=== PATIENT | male | born 1995 | race Asian ===

== ENCOUNTER 2019-06-08 10:46 | Inpatient (IN) ==
[2019-06-08 11:36] LABS: Appearance Urine Cloudy (Clear); Bacteria Urine Automated Negative (Negative); Bilirubin Urine Negative (Negative); Blood Urine Negative (Negative); Color Urine Yellow; Glucose Urine UA Negative (Negative); Ketones Urine Trace (Negative); Leukocyte Esterase Urine Negative (Negative); Nitrite Urine Negative (Negative); Protein Urine Negative (Negative); RBC Urine Automated 0-4 /hpf (0-4); Specific Gravity Urine 1.024 (1.000-1.030); Urobilinogen Urine Negative (Negative); pH Urine 5.5 (4.5-7.5)
[2019-06-08 11:51] LABS: Amphetamines+Metham, Urine Neg (Neg); Barbiturates, Urine Neg (Neg); Benzodiazepine, Urine Neg (Neg); Cocaine, Urine Neg (Neg); MDMA (Ecstacy), Urine Neg (Neg); Methadone, Urine Neg (Neg); Opiate, Urine Neg (Neg); Phencyclidine, Urine Neg (Neg)
[2019-06-08 11:53] LABS: Basophils # (auto) 0.06 K/uL (0-0.2); Basophils % (auto) 1.2 %; Eosinophils # (auto) 0.41 K/uL (0-0.5); Hematocrit (blood only) 41.2 % (42-52); Hemoglobin 14.3 g/dL (14.0-18.0); Immature Granulocytes # (auto) 0.01 K/uL (0.00-0.02); Immature Granulocytes % (auto) 0.2 %; Lymphocytes # (auto) 1.42 K/uL (1.2-3.4); Lymphocytes % (auto) 27.7 %; Mean Corpuscular Hgb Conc 34.7 g/dL (32-36); Mean Platelet Volume 9.8 fL (7.4-10.4); Monocytes % (auto) 5.8 %; Neutrophils # (auto) 2.93 K/uL (1.4-6.5); Neutrophils % (auto) 57.1 %; Platelet Count 221 K/uL (130-400); RDW Coefficient of Variation 13.1 % (11.5-14.5); RDW Standard Deviation 37.6 fL (36.4-46.3); Red Blood Count 5.15 M/uL (4.7-6.1); White Blood Count 5.13 K/uL (4.8-10.8)
[2019-06-08 12:12] LABS: Alanine Aminotransferase 25 U/L (12-78); Albumin Level 3.9 gm/dl (3.4-5.0); Aspartate Aminotransferase 14 U/L (15-37); Blood Urea Nitrogen 9 mg/dl (7-18); Calcium 8.7 mg/dl (8.5-10.1); Carbon Dioxide 28 mmol/L (21-32); Chloride 108 mmol/L (98-107); Est GFR (African American) 133.5; Est GFR (Non-African American) 115.2; Glucose 93 mg/dl (70-99); Potassium 3.7 mmol/L (3.5-5.1); Sodium 140 mmol/L (136-145)
[2019-06-08 12:20] LABS: Acetaminophen < 2 ug/ml (10-30); Salicylate < 1.7 mg/dl (2.8-20)
[2019-06-08 12:22] LABS: Albumin Globulin Ratio 1.1 (0.9-2); Alkaline Phosphatase 80 U/L (45-117); Bilirubin,Total 0.5 mg/dl (0.2-1); Globulin 3.6 gm/dl (2.5-4.0); Total Protein 7.5 gm/dl (6.4-8.2)
--- NOTE | 2019-06-08 15:25 | Emergency Department Note ---
Entered by Faby Preciado acting as a scribe for ED Provider Note CHIEF COMPLAINT: Mental Health Evaluation HISTORY OF PRESENT ILLNESS: The patient is a 24 year old male who presents to the Emergency Room for an episode of mental health evaluation prior to arrival. The police sergeant that transported the patient here states that the patient sent a text message to his brother last night with a picture of a rope and a message that he was going to commit suicide. The officer states that the patient was located driving his car where they found a rope that the patient claimed he was going to use to kill himself. The patient states that he bought the rope with intention to kill himself. He reports that he has been upset with his life for the past 2 months since he lost his job as an [employer] due to slow business. The patient also reports that he is currently stressed about a lack of money to pay his bills. The patient claims that he moved to [place] from [place], [place] to be closer to his brother. The patient denies any previous psychiatric history or suicidal thoughts. Pt denies LOC, headache, fevers, chills, diaphoresis, visual changes, neck pain, chest pain, breathing difficulties, nausea, vomiting, abdominal pain, back pain, melena, hematochezia, urinary symptoms, numbness, weakness, lymphadenopathy, rash, or other complaints. REVIEW OF SYSTEMS: See HPI for pertinent positives and negatives. A total of ten systems were reviewed and were otherwise negative. PMHx/PSHx: No past medical history. No past surgical history. SOCIAL HISTORY: Patient lives at home. Patient is not a smoker or drinker. PHYSICAL EXAM: GENERAL: Awake, alert, well-appearing, in no distress HENT: Normocephalic, atraumatic. Oropharynx unremarkable. EYES: PERRL. Normal conjunctiva. Sclera non-icteric. NECK: Inspection normal. Non-tender. Supple. No nuchal rigidity. FROM. No masses. RESPIRATORY: Clear to auscultation. No wheezes. No rales. Normal respiratory e ffort. CARDIAC: Normal rate. Normal rhythm. No murmurs. No rubs. Extremities warm and well perfused. Pulses equal. No JVD. GI: Soft, non-distended. No tenderness to palpation. No rebound or guarding. No masses. RECTAL: Deferred. MUSCULOSKELETAL: Atraumatic. Chest examination reveals no tenderness. The back is symmetrical on inspection without obvious abnormality. There is no CVA tenderness to palpation. No joint edema. LOWER EXTREMITIES: Calves are equal size bilaterally and non-tender. No edema. No discoloration. NEURO: Normal sensorium. No sensory or motor deficits noted. PSYCH: Depressed Mood. Flat Affect. Suicidal ideation. No delusions or hallucinations. Poor insight. SKIN: No rash or jaundice noted. EMERGENCY DEPARTMENT COURSE: 1100: Past medical records reviewed. The patient was evaluated in room A7, and a complete history and physical examination were performed. 1350: I reevaluated the patient at this time and he is resting comfortably. 1450: I discussed the patients case with the case manager specialist and we decided that the patient will be admitted for further management. 1540: I evaluated the patient at this time. The patient was received by [facility] and admitted. MEDICAL DECISION MAKING: Prior records/ancillary studies reviewed. Triage Nursing notes reviewed and agree them. Additional history obtained from the family. The patient's history was concerning for possible psychiatric disturbance. Differential diagnosis: Etiologies such as mood disorder, infection, hypoglycemia, electrolyte abnormalities, cardiac sources, intracerebral event, toxicologic, neurologic, as well as others were entertained. Physical examination: The physical examination was performed as above and was completely benign. No emergent medical pathologies were noted. ER treatment provided: Monitoring. No education was given. On reassessment the patient felt better. Diagnostic interpretation by me: The labs revealed an unremarkable CBC and chemistry panel. Toxicology screen negative. Imaging studies: Deferred Patient was evaluated by the ER psychiatric case manager specialist. There were concerns about the patient's insight in his ability to understand the significant impact of his suicidal issues. He initially was cooperative but then was resistant to the idea of treatment in the hospital. A 302 was pursued. The patient was evaluated by the [facility] delegate. Patient was evaluated by [facility]. Admission to the hospital was felt to be appropriate due to the patient's high risk. I gave my usual and customary discussion regarding this issue. IMPRESSION: Mood disorder Suicidal ideation PLAN: The patient will be admitted for further management. The scribe's documentation has been prepared under my direction and personally reviewed by me in its entirety. I confirm that the note above accurately reflects all work, treatment, procedures, and medical decision making performed by me. Impression & Plan Mood disorder, Suicidal ideation Past Med/Surg History Medical History No known health problems Family History Other Diabetes Social History Preferred Language: Sinhala Communication Ability: Effective Structurer Required: No Beliefs That Will Affect Care: Zoroastrian current occupational status: unemployed Feels Safe at Home: Yes Smoking Status: Never smoker Results & Data Vital Signs Vital Signs - 24 hr 06/08/19 10:45 06/08/19 12:48 Temperature 36.8 C Temperature Source Oral Sepsis Recent Fever Within 48 Hours No Sepsis New/Unexplained Change in Mental Status No Sepsis Action Taken by Nursing No Action Required Pulse Rate 93 H Pulse Rate [Left Finger] 65 Pulse Rhythm [Left Finger] Regular Respiratory Rate 20 20 Respiratory Effort / Characteristics Non-Labored Non-Labored Respiratory Depth Normal Normal Respiratory Pattern Regular Regular Blood Pressure 131/83 Blood Pressure [Left Arm] 130/72 Blood Pressure Mean 99 Blood Pressure Mean [Left Arm] 91 Pulse Oximetry 98 97 Oxygen Delivery Method Room Air Room Air Laboratory Data Result diagrams: 06/08/19 11:38 06/08/19 11:38 Lab Results 06/08/19 06/08/19 06/08/19 Range/Units 11:20 11:20 11:38 WBC 5.13 (4.8-10.8) K/uL RBC 5.15 (4.7-6.1) M/uL Hgb 14.3 (14.0-18.0) g/dL Hct 41.2 L (42-52) % MCV 80.0 (80-100) fL MCH 27.8 (25-34) pg MCHC 34.7 (32-36) g/dL RDW Std Deviation 37.6 (36.4-46.3) fL RDW Coeff of Mike 13.1 (11.5-14.5) % Plt Count 221 (130-400) K/uL MPV 9.8 (7.4-10.4) fL Immature Gran % (Auto) 0.2 % Neut % (Auto) 57.1 % Lymph % (Auto) 27.7 % Crosby % (Auto) 5.8 % Eos % (Auto) 8.0 % Baso % (Auto) 1.2 % Immature Gran # (Auto) 0.01 (0.00-0.02) K/uL Neut # (Auto) 2.93 (1.4-6.5) K/uL Lymph # (Auto) 1.42 (1.2-3.4) K/uL Crosby # (Auto) 0.30 (0.11-0.59) K/uL Eos # (Auto) 0.41 (0-0.5) K/uL Baso # (Auto) 0.06 (0-0.2) K/uL Sodium (136-145) mmol/L Potassium (3.5-5.1) mmol/L Chloride (98-107) mmol/L Carbon Dioxide (21-32) mmol/L Anion Gap (3-11) BUN (7-18) mg/dl Creatinine (0.6-1.4) mg/dl Est Cr Clr Drug Dosing Est GFR ( Amer) Est GFR (Non-Af Amer) BUN/Creatinine Ratio (10-20) Glucose (70-99) mg/dl Calcium (8.5-10.1) mg/dl Total Bilirubin (0.2-1) mg/dl AST (15-37) U/L ALT (12-78) U/L Alkaline Phosphatase (45-117) U/L Total Protein (6.4-8.2) gm/dl Albumin (3.4-5.0) gm/dl Globulin (2.5-4.0) gm/dl Albumin/Globulin Ratio (0.9-2) TSH (0.300-4.500) uIu/ml Urine Color Yellow Urine Appearance Cloudy A (Clear) Urine pH 5.5 (4.5-7.5) Ur Specific [place] 1.024 (1.000-1.030) Urine Protein Negative (Negative) Urine Glucose (UA) Negative (Negative) Urine Ketones Trace H (Negative) Urine Blood Negative (Negative) Urine Nitrite Negative (Negative) Urine Bilirubin Negative (Negative) Urine Urobilinogen Negative (Negative) Ur Leukocyte Esterase Negative (Negative) Urine WBC (Auto) 1-5 (0-5) /hpf Urine RBC (Auto) 0-4 (0-4) /hpf U Hyaline Cast (Auto) 1-5 (0-5) /lpf U Epithel Cells (Auto) 10-20 H (0-5) /lpf Urine Bacteria (Auto) Negative (Negative) Salicylates (2.8-20) mg/dl Urine Opiates Screen Neg (Neg) Ur Methadone, Qual Neg (Neg) Acetaminophen (10-30) ug/ml Urine Barbiturates Neg (Neg) Ur Phencyclidine (PCP) Neg (Neg) U Amphetamin/Meth Scrn Neg (Neg) MDMA (Ecstasy) Screen Neg (Neg) U Benzodiazepines Scrn Neg (Neg) Ur Cocaine Metabolite Neg (Neg) U Marijuana (THC) Screen Neg (Neg) Ethyl Alcohol mg/dL (0-3) mg/dl 06/08/19 06/08/19 06/08/19 Range/Units 11:38 11:38 11:38 WBC (4.8-10.8) K/uL RBC (4.7-6.1) M/uL Hgb (14.0-18.0) g/dL Hct (42-52) % MCV (80-100) fL MCH (25-34) pg MCHC (32-36) g/dL RDW Std Deviation (36.4-46.3) fL RDW Coeff of Mike (11.5-14.5) % Plt Count (130-400) K/uL MPV (7.4-10.4) fL Immature Gran % (Auto) % Neut % (Auto) % Lymph % (Auto) % Crosby % (Auto) % Eos % (Auto) % Baso % (Auto) % Immature Gran # (Auto) (0.00-0.02) K/uL Neut # (Auto) (1.4-6.5) K/uL Lymph # (Auto) (1.2-3.4) K/uL Crosby # (Auto) (0.11-0.59) K/uL Eos # (Auto) (0-0.5) K/uL Baso # (Auto) (0-0.2) K/uL Sodium 140 (136-145) mmol/L Potassium 3.7 (3.5-5.1) mmol/L Chloride 108 H (98-107) mmol/L Carbon Dioxide 28 (21-32) mmol/L Anion Gap 4.0 (3-11) BUN 9 (7-18) mg/dl Creatinine 0.92 (0.6-1.4) mg/dl Est Cr Clr Drug Dosing Not Reportable Est GFR ( Amer) 133.5 Est GFR (Non-Af Amer) 115.2 BUN/Creatinine Ratio 10.0 (10-20) Glucose 93 (70-99) mg/dl Calcium 8.7 (8.5-10.1) mg/dl Total Bilirubin 0.5 (0.2-1) mg/dl AST 14 L (15-37) U/L ALT 25 (12-78) U/L Alkaline Phosphatase 80 (45-117) U/L Total Protein 7.5 (6.4-8.2) gm/dl Albumin 3.9 (3.4-5.0) gm/dl Globulin 3.6 (2.5-4.0) gm/dl Albumin/Globulin Ratio 1.1 (0.9-2) TSH 0.592 (0.300-4.500) uIu/ml Urine Color Urine Appearance (Clear) Urine pH (4.5-7.5) Ur Specific [place] (1.000-1.030) Urine Protein (Negative) Urine Glucose (UA) (Negative) Urine Ketones (Negative) Urine Blood (Negative) Urine Nitrite (Negative) Urine Bilirubin (Negative) Urine Urobilinogen (Negative) Ur Leukocyte Esterase (Negative) Urine WBC (Auto) (0-5) /hpf Urine RBC (Auto) (0-4) /hpf U Hyaline Cast (Auto) (0-5) /lpf U Epithel Cells (Auto) (0-5) /lpf Urine Bacteria (Auto) (Negative) Salicylates < 1.7 L (2.8-20) mg/dl Urine Opiates Screen (Neg) Ur Methadone, Qual (Neg) Acetaminophen < 2 L (10-30) ug/ml Urine Barbiturates (Neg) Ur Phencyclidine (PCP) (Neg) U Amphetamin/Meth Scrn (Neg) MDMA (Ecstasy) Screen (Neg) U Benzodiazepines Scrn (Neg) Ur Cocaine Metabolite (Neg) U Marijuana (THC) Screen (Neg) Ethyl Alcohol mg/dL < 3.0 (0-3) mg/dl Discharge Plan Visit Data *Final* Discharge Date/Time: 06/08/19 16:32 Chief Complaint: Mental Health Evaluation ED Provider: Uriel Wilson Discharge Problem: Mood disorder, Suicidal ideation Patient Disposition: Admitted As Inpatient Discharge Instructions Interventions: ED Discharge Assessment Last Done: 06/08/19 16:32 The scribe's documentation has been prepared under my direction and personally r eviewed by me in its entirety. I confirm that the note above accurately reflects all work, treatment, procedures, and medical decision making performed by me.
[2019-06-08] MEDS ORDERED: MAGNESIUM HYDROXIDE SUSP 30 ML UDC PO PRN (17:41)
[2019-06-08] MEDS ORDERED: ACETAMINOPHEN 325 MG TAB PO PRN (17:41)
[2019-06-08] MEDS ORDERED: SODIUM CHLORIDE 0.65% NA SOLN 45 ML (OCEAN) PRN (17:41)
[2019-06-08] MEDS ORDERED: BISMUTH SUBSALICYLATE PER ML OMNICELL CHARGE PO PRN (17:41)
[2019-06-08] MEDS ORDERED: ALUMINUM/MAGNESIUM SUSP 30 ML UDC PO PRN (17:41)
--- NOTE | 2019-06-08 18:15 | History & Physical ---
Date of Service June 08, 2019 Impression / Recommendations Impression This 24-year-old man acknowledges that he has been feeling depressed since he lost his job in February of this year, a circumstance that has led to significant financial stressors as well as conflict with members of his family. However, while he reports that his mood has been "down", he denies that he is experiencing anything other than distress about his current circumstances. He also reports that although he can certainly understand why people are concerned about the fact that he sent a picture of himself with a noose around his neck, he insists that he was never genuinely suicidal and was "just trying to get even" with his brother who had fairly recently refused to allow him to continue to stay in his apartment locally, and who he also asserts had, during an angry exchange, called the patient a "piece of shit." The patient tells me that he is feeling betrayed by his local brother, as well as by other specific members of his family because he feels they are not being sufficiently supportive given his difficulty finding and maintaining a job that is sufficient to allow him to earn a living wage. He tells us that his current income is barely sufficient to allow him to make his car payments and auto mode of operating expenses. He also notes that he has been actively applying for other jobs, but has not been successful, primarily because he lacks experience. He has no reported history of intentional self injury and no past history of psychiatric symptomatology, including depression. He describes his mood as "pretty good" today and his affect is bright and fairly animated. My impression is that the patient's assessment of his current circumstances is correct; i.e., he is distressed about his current life circumstances, but, at the same time, he is future oriented and reports that he was only trying to express his hurt and disappointment in his brother by sending him the picture that implied that the brother had brought him to the point of suicide, even though that was not actually the case. We discussed the possible use of antidepressant medications, but the patient says that he would prefer not to take medications because he feels certain that once he succeeds in finding a job his mood will rapidly return to normal. On the patient's goals is to temporarily return to [place] [facility] [place], the country where he was born and lived until he was approximately 11 years old. 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. Our plan will be to observe the patient for the next 2 or 3 days in order to assure that he is not simply taken a "flight into health," and arrange for outpatient aftercare services. (1) Suicidal ideation: 06/08 -The patient's assertion is that he never had any intent to harm himself by placing a noose around his neck. Instead, he tells us that his goal was to communicate to his brother's feelings of hurt and betrayal in the face of the brother's decision to eject the patient from the apartment that they had been sharing (at the brother's girlfriend's request), the brother's unwillingness to be supportive under the patient's current circumstances, and the fact that the brother had called him "a piece of shit". He tells me that he has never actually had any suicidal thoughts and has no past history of intentional self injury. -We will observe the patient at the inpatient level care in order to assure that he is genuinely not suicidal. -During stay, the patient has been referred for activity and group therapies. The goal will be for the patient to learn improved individual coping strategies in anticipation of discharge. Present on Admission?: Yes (2) Adjustment disorder: 06/08 -The patient reports that he has no past history of depression or any other psychiatric symptoms. However, he does note that he is having difficulty adjusting to his current financial difficulties and living situation. -I do not believe the patient meets criteria for major depression. 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 Present on Admission?: Yes Inventory Assets Strengths: Intelligent. Goal oriented. Industrious. Needs: Poor individual coping strategies. Relief from serious financial difficulties. Greater support from family and friends. Risk Factors Assessment Male: Yes : Yes Do You Have Access To A Gun?: No Health Problems: No Mental Health Diagnoses: Yes Substance Use Disorders: No Previous Attempt: No Previous Attempt; Didn't Tell Anyone: No Family History of Suicide: No Previous Psychiatric Hospitalization: No Hopelessness: No Smoker: No Protective Factors Assessment Yazidism Beliefs: Yes : No Responsible for Young Children: No Employed: Yes ([employer]) Stable Relationships: Yes Supportive Family: Yes (Patient reports that several family members are very supportive, including a cousin) Good Rapport with Provider: Yes Absence of Any Risk Factors Above: No Psychiatric History Identifying Data DAKOTA MERIDA is a 24-year-old M who currently lives alone in [place], [place]. He has no known history of any previous contact with the mental health community, although he reports that he has been feeling depressed for approximately 3 months. The patient was admitted on 06/08/19 16:12 on a 302 involuntary commitment after he threatened suicide. Chief Complaint "I was upset because my brother called me a piece of shit." History of Present Illness The patient is a 24-year-old man who was admitted a 302 commitment after he indirectly threatened suicide by purchasing a rope, tying a rope into a noose, placing the noose around his neck, and then taking a picture of himself with a noose loosely around his neck. The patient then proceeded to send the picture of himself "wearing" the noose to his brother with an implication that he was planning to commit suicide by hanging. The patient acknowledges that he included a message that said something such as "is this what you want?" The patient tells me that he did not intend suicide and, instead, was simply trying to express his displeasure with his brother for not being sufficiently supportive. 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 He tells us that he was terminated from his position in the warehouse because he had made a series of mistakes and filling orders. For example, he notes that if a customer had ordered, say, 10 items he occasionally only fill the order with 9 items. This circumstance led to financial difficulties, and the patient noted that he did not have sufficient funds to make his car payments and contribute to household expenses. 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 In [place], he was living with an older brother, but the brother's girlfriend moved into the apartment and insisted that the patient's brother eject the patient from the apartment after he brought a female friend to the apartment. The patient explained that he believes that his brother's girlfriend simply wanted him out of the apartment because it was too crowded and, also, because he was not financially able to the household expenses. He reports that he only makes approximately enough money with the cleaning service to make his car payments. 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 After his brother ejected the patient from the apartment that the patient had shared with the brother the patient went to live in a somewhat derelict apartment that was being used by the cleaning company to store cleaning equipment. The patient notes that the apartment was barely habitable and, for example, did not have a working shower or bath tub, and was really not intended for habitation. He again sought help from his local brother here in [place], as well as from another sibling who is located in [place], [place]. Evidently, both brothers rejected his request for assistance, and the local brother reportedly ended up calling him "a piece of shit." Subsequent to that, the patient engaged in the behaviors that led to the admission; specifically, he purchased a rope, fashioned a noose, and sent a picture to his brother of himself with the noose hanging slack around his neck. The other hand of the noose was not attached to anything, according the patient. Upon receiving the photograph, the patient brother contacted the police. The police. The patient is he was in the process of driving a female friend back to her apartment. They advised him that they had received a report that he was threatening by hanging and brought him to the emergency room. The patient notes that he has been feeling depressed since losing his job in February, and is feeling very frustrated by the fact that he is working hard, but is not able to afford a decent place to live. He also says that the value of his car is less than what he owes on it and while he would have the option of having the car repossessed, he wants to avoid this if at all possible. The patient notes that 1 of his cousins has offered to pay his expenses to travel to his [place] [facility]. The patient is a [place] citizen, but feels that he might do better, at least temporarily, in [facility] where he has other relatives, including grandparents. Past Psychiatric History Previous Psych History: None. The patient reports that he has had no previous contact with the mental health community. Current Psychiatric Diagnosis: No prior diagnosis Outpatient Services: None. Previous Psych Admissions: None. Do You Have Access To A Gun?: No History of Previous Suicide Attempt: No Describe Attempts in the Past: None Past Head Trauma/Neuro History History of Concussion/Seizure: No (None.) Allergies Allergy/AdvReac Type Severity Reaction Status Date / Time No Known Allergies Allergy Unverified 06/08/19 13:02 Home Medications Home Medications Medication Instructions Recorded Confirmed Type No Known Home Medications 06/08/19 06/08/19 History Family History Family History of: None Alcohol History Hx of Alcohol Use Over the Past 12 Months: No Smoking Use Smoking Status: Never smoker Substance History Hx of Prescription Med Misuse Over the Past 12 Months: No Hx of Over the Counter Med Misuse Over the Past 12 Months: No Hx of Inhalent Misuse Over the Past 12 Months: No Hx of Organic Substance Use Over the Past 12 Months: No Hx of Illegal Substances/Street Drug Use Over Past 12 Months: No Problems as a Result of Past Substance Use: None Identified Personal History Living Arrangements: Apartment Living Arrangements Comments: Although the patient is technically living in an a partment, the apartment, is described with the patient, is barely fit for him and habitation. He is not paying rent, and his employer is allowing him to live in it. The apartment is used for storage of cleaning supplies. There is a bathroom, but there are no working bathing facilities. He does have a bed, but he describes the bed is "old and broken down." Born In: [place] Childhood: The patient reports that he has lived in the [place], with brief exceptions, since the age of 11. For a time, the family lived in [facility] and, more recently, has settled and [place]. The patient's parents and a number of his siblings are currently living in [place]. The patient is a [place] citizen by virtue of the other is a naturalized [place] citizen and, at the time that she became naturalized her children were automatically made to [place] citizens. 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 Marital Status: Single Beliefs That Will Affect Care: Yazidism Current Legal Problems: No Hx Legal Problems: No Hx Traumatic Life Events: No Patient History Medical History No known health problems Family History Other Diabetes Social History Preferred Language: Danish Communication Ability: Effective Field Underwriter Required: No Beliefs That Will Affect Care: Yazidism current occupational status: unemployed Feels Safe at Home: Yes Smoking Status: Never smoker Review of Systems Review of Systems: All systems reviewed & are unremarkable except as noted in HPI & below The somatic history, review of systems, and physical examination report completed by Uriel Wilson has been reviewed and is accepted for purposes of medical clearance to the behavioral health unit. Physical Exam Psychiatric: Orientation: oriented x 3 Apperance: appropriately dressed, appropriately groomed and appeared stated age Eye Contact: good eye contact Motor Behavior: steady gait and station Speech: normal rate/rhythm/volume of speech Affect: euthymic affect "I was pretty upset yesterday. Today, it seems like nothing. I am feeling much better today." Thought Process: goal directed thought process, linear/logical thought process, clear/coherent thought process and + thought blocking Thought Content: reality based without delusions Suicidal Thoughts: denies suicidal thoughts Homicidal Thoughts: denies homicidal thoughts Hallucinations: + auditory hallucinations and + visual hallucinations Cognition: recent memory grossly intact, remote memory grossly intact, attention grossly intact and language grossly intact Estimated Intelligence: + above average estimated intelligence Insight: + fair insight The patient does understand why he has been hospitalized, and recognizes that the act of purchasing a rope, tying a noose, and seeing a picture of himself with a noose around his neck justifiably has raised significant concerns and he also understands that the goal is to assure that he is safe before returning him to the community. Judgement: + limited judgement The patient now recognizes that he exercised poor judgment by sending a picture of himself with a noose around his neck to his brother, even though he notes that it was in anger and not a genuine threat. Vital Signs (Past 24 Hours): Last Vital Signs Temp 36.8 C 06/08/19 10:45 Pulse 89 06/08/19 16:32 Resp 18 06/08/19 16:32 BP 128/78 06/08/19 16:32 Pulse Ox 98 06/08/19 16:32 Results & Data Laboratory Results Laboratory Results - last 24 hr 06/08/19 06/08/19 06/08/19 11:20 11:20 11:38 WBC 5.13 RBC 5.15 Hgb 14.3 Hct 41.2 L MCV 80.0 MCH 27.8 MCHC 34.7 RDW Std Deviation 37.6 RDW Coeff of Mike 13.1 Plt Count 221 MPV 9.8 Immature Gran % (Auto) 0.2 Neut % (Auto) 57.1 Lymph % (Auto) 27.7 Craig % (Auto) 5.8 Eos % (Auto) 8.0 Baso % (Auto) 1.2 Immature Gran # (Auto) 0.01 Neut # (Auto) 2.93 Lymph # (Auto) 1.42 Craig # (Auto) 0.30 Eos # (Auto) 0.41 Baso # (Auto) 0.06 Sodium Potassium Chloride Carbon Dioxide Anion Gap BUN Creatinine Est Cr Clr Drug Dosing Est GFR ( Amer) Est GFR (Non-Af Amer) BUN/Creatinine Ratio Glucose Calcium Total Bilirubin AST ALT Alkaline Phosphatase Total Protein Albumin Globulin Albumin/Globulin Ratio TSH Urine Color Yellow Urine Appearance Cloudy A Urine pH 5.5 Ur Specific [place] 1.024 Urine Protein Negative Urine Glucose (UA) Negative Urine Ketones Trace H Urine Blood Negative Urine Nitrite Negative Urine Bilirubin Negative Urine Urobilinogen Negative Ur Leukocyte Esterase Negative Urine WBC (Auto) 1-5 Urine RBC (Auto) 0-4 U Hyaline Cast (Auto) 1-5 U Epithel Cells (Auto) 10-20 H Urine Bacteria (Auto) Negative Salicylates Urine Opiates Screen Neg Ur Methadone, Qual Neg Acetaminophen Urine Barbiturates Neg Ur Phencyclidine (PCP) Neg U Amphetamin/Meth Scrn Neg MDMA (Ecstasy) Screen Neg U Benzodiazepines Scrn Neg Ur Cocaine Metabolite Neg U Marijuana (THC) Screen Neg Ethyl Alcohol mg/dL 06/08/19 06/08/19 06/08/19 11:38 11:38 11:38 WBC RBC Hgb Hct MCV MCH MCHC RDW Std Deviation RDW Coeff of Mike Plt Count MPV Immature Gran % (Auto) Neut % (Auto) Lymph % (Auto) Craig % (Auto) Eos % (Auto) Baso % (Auto) Immature Gran # (Auto) Neut # (Auto) Lymph # (Auto) Craig # (Auto) Eos # (Auto) Baso # (Auto) Sodium 140 Potassium 3.7 Chloride 108 H Carbon Dioxide 28 Anion Gap 4.0 BUN 9 Creatinine 0.92 Est Cr Clr Drug Dosing Not Reportable Est GFR ( Amer) 133.5 Est GFR (Non-Af Amer) 115.2 BUN/Creatinine Ratio 10.0 Glucose 93 Calcium 8.7 Total Bilirubin 0.5 AST 14 L ALT 25 Alkaline Phosphatase 80 Total Protein 7.5 Albumin 3.9 Globulin 3.6 Albumin/Globulin Ratio 1.1 TSH 0.592 Urine Color Urine Appearance Urine pH Ur Specific [place] Urine Protein Urine Glucose (UA) Urine Ketones Urine Blood Urine Nitrite Urine Bilirubin Urine Urobilinogen Ur Leukocyte Esterase Urine WBC (Auto) Urine RBC (Auto) U Hyaline Cast (Auto) U Epithel Cells (Auto) Urine Bacteria (Auto) Salicylates < 1.7 L Urine Opiates Screen Ur Methadone, Qual Acetaminophen < 2 L Urine Barbiturates Ur Phencyclidine (PCP) U Amphetamin/Meth Scrn MDMA (Ecstasy) Screen U Benzodiazepines Scrn Ur Cocaine Metabolite U Marijuana (THC) Screen Ethyl Alcohol mg/dL < 3.0 CPT Code CPT Code Initial Hospital Care: 84164
--- NOTE | 2019-06-09 18:03 | Psychiatric Progress Note ---
Date of Service June 09, 2019 Impression / Recommendations Impression This 24-year-old man acknowledges that he has been feeling depressed since he lost his job in February of this year, a circumstance that has led to significant financial stressors as well as conflict with members of his family. However, while he reports that his mood has been "down", he denies that he is experiencing anything other than distress about his current circumstances. He also reports that although he can certainly understand why people are concerned about the fact that he sent a picture of himself with a noose around his neck, he insists that he was never genuinely suicidal and was "just trying to get even" with his brother who had fairly recently refused to allow him to continue to stay in his apartment locally, and who he also asserts had, during an angry exchange, called the patient a "piece of shit." The patient tells me that he is feeling betrayed by his local brother, as well as by other specific members of his family because he feels they are not being sufficiently supportive given his difficulty finding and maintaining a job that is sufficient to allow him to earn a living wage. He tells us that his current income is barely sufficient to allow him to make his car payments and auto mode of operating expenses. He also notes that he has been actively applying for other jobs, but has not been successful, primarily because he lacks experience. He has no reported history of intentional self injury and no past history of psychiatric symptomatology, including depression. He describes his mood as "pretty good" today and his affect is bright and fairly animated. he is distressed about his current life circumstances, but, at the same time, he is future oriented and reports that he was only trying to express his hurt and disappointment in his brother by sending him the picture that implied that the brother had brought him to the point of suicide, even though that was not actually the case. Not open to medication treatment options and he is denying more ongoing depressive symptoms. One of the patient's goals is to temporarily return to [place], the country where he was born and lived until he was approximately 11 years old. 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 We are obtaining collateral including from his cousin and assessing for safety concerns and apprapite discharge plans and that not jsut a flight into health as first on the unit and sorting out aftercare plans (1) Suicidal ideation: 06/08 -The patient's assertion is that he never had any intent to harm himself by placing a noose around his neck. Instead, he tells us that his goal was to communicate to his brother's feelings of hurt and betrayal in the face of the brother's decision to eject the patient from the apartment that they had been sharing (at the brother's girlfriend's request), the brother's unwillingness to be supportive under the patient's current circumstances, and the fact that the brother had called him "a piece of shit". He tells me that he has never actually had any suicidal thoughts and has no past history of intentional self injury. -We will observe the patient at the inpatient level care in order to assure that he is genuinely not suicidal. -During stay, the patient has been referred for activity and group therapies. The goal will be for the patient to learn improved individual coping strategies in anticipation of discharge. (2) Adjustment disorder: 06/08 -The patient reports that he has no past history of depression or any other psychiatric symptoms. However, he does note that he is having difficulty adjusting to his current financial difficulties and living situation. -I do not believe the patient meets criteria for major depression. 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 06/09 -collateral from cousin as documented in sw note - encouraging psychotherapy appts as outpt sorting out disposition plans for after discharge addressing ways pt externalizes and gets preoccupied about interpersonal tensions with family and encouraging realistic and constructive problem solving Inventory Assets Strengths: Intelligent. Goal oriented. Industrious. Needs: Poor individual coping strategies. Relief from serious financial difficulties. Greater support from family and friends. Risk Factors Assessment Male: Yes : Yes Do You Have Access To A Gun?: No Health Problems: No Mental Health Diagnoses: Yes Substance Use Disorders: No Previous Attempt: No Previous Attempt; Didn't Tell Anyone: No Family History of Suicide: No Previous Psychiatric Hospitalization: No Hopelessness: No Smoker: No Protective Factors Assessment Mormonism Beliefs: Yes : No Responsible for Young Children: No Employed: Yes ([employer]) Stable Relationships: Yes Supportive Family: Yes (Patient reports that several family members are very supportive, including a cousin) Good Rapport with Provider: Yes Absence of Any Risk Factors Above: No Interval History Chief Complaint "I am doing better, but angry at my brothers". Review of Systems Sleep Information Total Hours of Sleep: 9 Meal Information Percent Meal Consumed - Lunch: 0 Percent Meal Consumed - Dinner: 90 Subjective Subjective Patient was seen & assessed and interval progress reviewed with nurses and social work manager. Pt denied SI. continues to describe his thought process around the buying and showing of the rope to his brother was just to express his anger without actual SI. He is wanting to continue his job at the [employer] for the expected length of the next 5 or so weeks and then to have his cousin help him fly to [place] with aim to build up his life there. He is open to obtaining more support from his family in [place] but is currently angry at his brother who lives in [place] over feeling he is having cousin not obtain a plane ticket at this point. He indicates he can live with his cousin (in [place]) if and when needed and his cousin can help him find a job in [place]. He is denying any Si and is foreword thinking with aims for next weeks and beyond as above. he appears to be externalizing out his frustrations on to his brothers and views them as judging him and viewing them as impinging on his plans. He denied any HI. HE denied any psychotic features and denied depressive symptoms. He is not interested in psychotropic medications and does not feel that psychotherapy appts are all that needed but is willing to obtain names of therapist to call and to see if could be a helpful process for him. He denied issue with sleep or eating. Physical Exam Psychiatric Orientation: oriented x 3 Apperance: appropriately dressed, appropriately groomed and appeared stated age Eye Contact: good eye contact Motor Behavior: steady gait and station Speech: normal rate/rhythm/volume of speech Affect: + irritable affect Thought Process: + perseveration Thought Content: + preoccupation and reality based without delusions Suicidal Thoughts: denies suicidal thoughts Homicidal Thoughts: denies homicidal thoughts Hallucinations: no auditory hallucinations and no visual hallucinations Cognition: recent memory grossly intact, remote memory grossly intact and language grossly intact Estimated Intelligence: average estimated intelligence Insight: + fair insight Judgement: + limited judgement Vital Signs (Past 24 Hours) Last Vital Signs Temp 36.4 C L 06/09/19 06:41 Pulse 67 06/09/19 06:42 Resp 18 06/09/19 06:41 BP 112/78 06/09/19 06:42 Pulse Ox 98 06/08/19 16:32 Results & Data Current Inpatient Medications Current Inpatient Medications: Current Inpatient Medications Acetaminophen (Tylenol) 650 mg PO Q4H PRN PRN Reason: Headache or Minor Fever Stop: 07/08/19 17:40 Al Hydrox/Mg Hydrox/Simethicone (Maalox) 30 ml PO Q4H PRN PRN Reason: GI Upset Stop: 07/08/19 17:40 Bismuth Subsalicylate (Kaopectate) 15 ml PO PRN PRN PRN Reason: Loose Stool Stop: 07/08/19 17:40 Hydroxyzine HCl (Vistaril) 25 mg PO Q4H PRN PRN Reason: Anxiety Stop: 07/08/19 17:40 Hydroxyzine HCl (Vistaril) 50 mg PO HSZ PRN PRN Reason: Insomnia Stop: 07/08/19 17:40 Magnesium Hydroxide (Milk Of Magnesia) 30 ml PO DAILY PRN PRN Reason: Heartburn Stop: 07/08/19 17:40 Sodium Chloride ([place] Nasal) 1 - 2 sprays NA PRN PRN PRN Reason: Nasal Dryness/Congestion Stop: 07/08/19 17:40 Mental Health & Subst Abuse Tx Therapist Name of Therapist: None Rn Peritoneal Dialysis Name of Rn Peritoneal Dialysis: None Post Discharge Appointments Primary Care Physician Name Of Family Doctor: has provider back in [place] CPT Code CPT Code 00563
--- NOTE | 2019-06-10 10:01 | Discharge Summary ---
Date of Service June 10, 2019 History of Present Illness The patient is a 24-year-old man who was admitted a 302 commitment after he indirectly threatened suicide by purchasing a rope, tying a rope into a noose, placing the noose around his neck, and then taking a picture of himself with a noose loosely around his neck. The patient then proceeded to send the picture of himself "wearing" the noose to his brother with an implication that he was planning to commit suicide by hanging. The patient acknowledges that he included a message that said something such as "is this what you want?" The patient tells me that he did not intend suicide and, instead, was simply trying to express his displeasure with his brother for not being sufficiently supportive. 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 He tells us that he was terminated from his position in the warehouse because he had made a series of mistakes and filling orders. For example, he notes that if a customer had ordered, say, 10 items he occasionally only fill the order with 9 items. This circumstance led to financial difficulties, and the patient noted that he did not have sufficient funds to make his car payments and contribute to household expenses. 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 In [place], he was living with an older brother, but the brother's girlfriend moved into the apartment and insisted that the patient's brother eject the patient from the apartment after he brought a female friend to the apartment. The patient explained that he believes that his brother's girlfriend simply wanted him out of the apartment because it was too crowded and, also, because he was not financially able to the household expenses. He reports that he only makes approximately enough money with the cleaning service to make his car payments. 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 After his brother ejected the patient from the apartment that the patient had shared with the brother the patient went to live in a somewhat derelict apartment that was being used by the [employer] to store cleaning equipment. The patient notes that the apartment was barely habitable and, for example, did not have a working shower or bath tub, and was really not intended for habitation. He again sought help from his local brother here in [place], as well as from another sibling who is located in [place], [place]. Evidently, both brothers rejected his request for assistance, and the local brother reportedly ended up calling him "a piece of shit." Subsequent to that, the patient engaged in the behaviors that led to the admission; specifically, he purchased a rope, fashioned a noose, and sent a picture to his brother of himself with the noose hanging slack around his neck. The other hand of the noose was not attached to anything, according the patient. Upon receiving the photograph, the patient brother contacted the police. The police. The patient is he was in the process of driving a female friend back to her apartment. They advised him that they had received a report that he was threatening by hanging and brought him to the emergency room. The patient notes that he has been feeling depressed since losing his job in February, and is feeling very frustrated by the fact that he is working hard, but is not able to afford a decent place to live. He also says that the value of his car is less than what he owes on it and while he would have the option of having the car repossessed, he wants to avoid this if at all possible. The patient notes that 1 of his cousins has offered to pay his expenses to travel to his [place] [facility]. The patient is a [place] citizen, but feels that he might do better, at least temporarily, in [facility] where he has other relatives, including grandparents. Physical Exam Psychiatric Orientation: oriented x 3 and cooperative Apperance: appropriately dressed, appropriately groomed and appeared stated age Eye Contact: good eye contact Motor Behavior: steady gait and station Speech: normal rate/rhythm/volume of speech Affect: euthymic affect Thought Process: goal directed thought process and clear/coherent thought process Thought Content: reality based without delusions Suicidal Thoughts: denies suicidal thoughts Homicidal Thoughts: denies homicidal thoughts Hallucinations: no auditory hallucinations and no visual hallucinations Cognition: recent memory grossly intact, remote memory grossly intact, attention grossly intact and language grossly intact Estimated Intelligence: average estimated intelligence Insight: + fair insight Judgement: + fair judgement Vital Signs (Past 24 Hours) Last Vital Signs Temp 36.5 C 06/10/19 06:37 Pulse 79 06/10/19 06:38 Resp 16 06/10/19 06:37 BP 112/73 06/10/19 06:38 Pulse Ox 98 06/08/19 16:32 Principal Diagnosis adjustment disorder with mixed disturbance of emotions and conduct Psychiatric Data Day of Discharge Assessment Pt is no longer irritated at family. Pt shared how cousin does not always follow through on his ideas and comments and pt is no longer focused on obtaining a ticket to [facility]. He spoke to his sister and she and their mom will have his brothers pull back from making comments to him about what he should do or their judgments about him and his life. He shared about upcoming job interview for position in [place] to occur later this week and how would then live with his family in [place] once no longer working the job current job in [employer], set to end late June as of now. HE is comfortable with his current living arrangements in [employer] tied to that job. He states no longer upset with or by his brothers. His sister is bringing up his car to [employer] today. He denied any SI or HI. He denied having depressive symptoms. He denied feeling anxious besides about financial concerns and feels this is manageable for him at this time. We addressed handing his emotions in ways that do not lead to safety concerns with a focus on decreasing acting out his frustrations when overly stressed. Pt reports desire for discharge today and that his mood is good and no longer upset. He is open to obtaining psychotherapy referrals and we addresed how seeing a psychotherapist can help with dealing with stressors and emotional tensions Transition of Care Transition Of Care Record: was reviewed with the patient Advance Directives Advance Directives Information Provided: Yes Advance Directives: No Mental Health Advance Directive: No Advance Directives on File: No Living Will: No Power of Fence Manufacture Supervisor: No Advance Directives Reason:: Declines as Mental Health Visit. Risk Factors Assessment Male: Yes : Yes Do You Have Access To A Gun?: No Health Problems: No Mental Health Diagnoses: Yes Substance Use Disorders: No Previous Attempt: No Previous Attempt; Didn't Tell Anyone: No Family History of Suicide: No Previous Psychiatric Hospitalization: No Hopelessness: No Smoker: No Protective Factors Assessment Latter Day Beliefs: Yes : No Responsible for Young Children: No Employed: Yes ([employer]) Stable Relationships: Yes Supportive Family: Yes (Patient reports that several family members are very supportive, including a cousin) Good Rapport with Provider: Yes Absence of Any Risk Factors Above: No Tobacco Cessation at Discharge Tobacco Cessation Medication Prescribed at Discharge: Not Applicable/Non-Smoker Total Time Total Time Spent: Greater Than 30 Minutes Total Time Includes: Examination of the patient, Discharge Planning and Medication Reconciliation Discharge Data Lab Results 06/08/19 06/08/19 06/08/19 11:20 11:20 11:38 WBC 5.13 RBC 5.15 Hgb 14.3 Hct 41.2 L MCV 80.0 MCH 27.8 MCHC 34.7 RDW Std Deviation 37.6 RDW Coeff of Mike 13.1 Plt Count 221 MPV 9.8 Immature Gran % (Auto) 0.2 Neut % (Auto) 57.1 Lymph % (Auto) 27.7 [place] % (Auto) 5.8 Eos % (Auto) 8.0 Baso % (Auto) 1.2 Immature Gran # (Auto) 0.01 Neut # (Auto) 2.93 Lymph # (Auto) 1.42 [place] # (Auto) 0.30 Eos # (Auto) 0.41 Baso # (Auto) 0.06 Sodium Potassium Chloride Carbon Dioxide Anion Gap BUN Creatinine Est Cr Clr Drug Dosing Est GFR ( Amer) Est GFR (Non-Af Amer) BUN/Creatinine Ratio Glucose Calcium Total Bilirubin AST ALT Alkaline Phosphatase Total Protein Albumin Globulin Albumin/Globulin Ratio TSH Urine Color Yellow Urine Appearance Cloudy A Urine pH 5.5 Ur Specific [place] 1.024 Urine Protein Negative Urine Glucose (UA) Negative Urine Ketones Trace H Urine Blood Negative Urine Nitrite Negative Urine Bilirubin Negative Urine Urobilinogen Negative Ur Leukocyte Esterase Negative Urine WBC (Auto) 1-5 Urine RBC (Auto) 0-4 U Hyaline Cast (Auto) 1-5 U Epithel Cells (Auto) 10-20 H Urine Bacteria (Auto) Negative Salicylates Urine Opiates Screen Neg Ur Methadone, Qual Neg Acetaminophen Urine Barbiturates Neg Ur Phencyclidine (PCP) Neg U Amphetamin/Meth Scrn Neg MDMA (Ecstasy) Screen Neg U Benzodiazepines Scrn Neg Ur Cocaine Metabolite Neg U Marijuana (THC) Screen Neg Ethyl Alcohol mg/dL 06/08/19 06/08/19 06/08/19 11:38 11:38 11:38 WBC RBC Hgb Hct MCV MCH MCHC RDW Std Deviation RDW Coeff of Mike Plt Count MPV Immature Gran % (Auto) Neut % (Auto) Lymph % (Auto) [place] % (Auto) Eos % (Auto) Baso % (Auto) Immature Gran # (Auto) Neut # (Auto) Lymph # (Auto) [place] # (Auto) Eos # (Auto) Baso # (Auto) Sodium 140 Potassium 3.7 Chloride 108 H Carbon Dioxide 28 Anion Gap 4.0 BUN 9 Creatinine 0.92 Est Cr Clr Drug Dosing Not Reportable Est GFR ( Amer) 133.5 Est GFR (Non-Af Amer) 115.2 BUN/Creatinine Ratio 10.0 Glucose 93 Calcium 8.7 Total Bilirubin 0.5 AST 14 L ALT 25 Alkaline Phosphatase 80 Total Protein 7.5 Albumin 3.9 Globulin 3.6 Albumin/Globulin Ratio 1.1 TSH 0.592 Urine Color Urine Appearance Urine pH Ur Specific [place] Urine Protein Urine Glucose (UA) Urine Ketones Urine Blood Urine Nitrite Urine Bilirubin Urine Urobilinogen Ur Leukocyte Esterase Urine WBC (Auto) Urine RBC (Auto) U Hyaline Cast (Auto) U Epithel Cells (Auto) Urine Bacteria (Auto) Salicylates < 1.7 L Urine Opiates Screen Ur Methadone, Qual Acetaminophen < 2 L Urine Barbiturates Ur Phencyclidine (PCP) U Amphetamin/Meth Scrn MDMA (Ecstasy) Screen U Benzodiazepines Scrn Ur Cocaine Metabolite U Marijuana (THC) Screen Ethyl Alcohol mg/dL < 3.0 Hospital Course (1) Suicidal ideation: 06/08 -The patient's assertion is that he never had any intent to harm himself by placing a noose around his neck. Instead, he tells us that his goal was to communicate to his brother's feelings of hurt and betrayal in the face of the brother's decision to eject the patient from the apartment that they had been sharing (at the brother's girlfriend's request), the brother's unwillingness to be supportive under the patient's current circumstances, and the fact that the brother had called him "a piece of shit". He tells me that he has never actually had any suicidal thoughts and has no past history of intentional self injury. -We will observe the patient at the inpatient level care in order to assure that he is genuinely not suicidal. -During stay, the patient has been referred for activity and group therapies. The goal will be for the patient to learn improved individual coping strategies in anticipation of discharge. (2) Adjustment disorder: 06/08 -The patient reports that he has no past history of depression or any other psychiatric symptoms. However, he does note that he is having difficulty adjusting to his current financial difficulties and living situation. -I do not believe the patient meets criteria for major depression. 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 06/09 -collateral from cousin as documented in note - encouraging psychotherapy appts as outpt sorting out disposition plans for after discharge addressing ways pt externalizes and gets preoccupied about interpersonal tensions with family and encouraging realistic and constructive problem solving 06/10 -pt aims to continue job in [employer] with completion date of job Late June with residing at place of work for now, has upcoming job interview for job in [place] within the week with aim to reside with family in [place] once no longer working job in [employer], sister bringing his car to [employer] today. therapy referrals for outpt psychotherapy appts to be given to pt by discharging today Mental Health & Subst Abuse Tx Therapist Name of Therapist: None Poultry Grader Name of Poultry Grader: None Post Discharge Appointments Primary Care Physician Name Of Family Doctor: has provider back in [place] Smoking Cessation Counseling Tobacco Cessation Medication Prescribed at Discharge: Not Applicable/Non-Smoker Discharge Plan Discharge Items Patient Disposition: Home - Self-Care Reason For Visit: MAJOR DEPRESSION Discharge Diagnosis: adjustment disorder with mixed disturbances of emotions and conduct Discharge Goals: Improve function Activity: Resume your previous activity Non-emergency contact: Therapist Call non-emergency contact if: your symptoms worsen Follow-up/Referrals: PCP,NO [Primary Care Provider] - Diet: Regular Addtl Provider Instructions: SPECIAL CARE INSTRUCTIONS: 1. Follow through with your scheduled aftercare appointments. If unable to keep an appointment, please call to reschedule. 2. Take your medication only as prescribed. Medication should not be changed or stopped without the approval of your doctor. In the event of worsening symptoms or concerns about side effects, contact your doctor immediately. 3. Utilize new healthy coping skills, anger management skills, and stress management skills learned during your hospitalization. Journal feelings and process them with a support person. Identify stressors or situations that may result in relapse, deterioration or inappropriate behaviors and develop a plan to deal with those issues. 4. If your coping skills are ineffective and you are in crisis, contact your outpatient providers for direction. If unable to reach your providers, please call the CAN HELP LINE AT or go to the closest Emergency Room. 5. Avoid alcohol and un-prescribed drugs. 6. You have been provided with the Mental Health Advance Directives Pamphlet for your review. AFTERCARE APPOINTMENTS: * Please call your insurance company prior to your scheduled appointment to confirm your aftercare providers are covered. Take your insurance information to your appointments. WHO TO CALL AND WHEN: Medical Emergencies: For questions or emergencies related to your hospital stay, please contact the Inpatient Behavioral Health Unit at [phone]. A bond runner is on-call 13/06 for the Behavioral Health Unit for emergencies At any time you feel your situation is an emergency, you may also call [phone] immediately. Your Doctors Instructions noted above were prepared by provider Rosendo Hercules MD. Prescriptions: No Action No Known Home Medications RF: 0 Stand-Alone Forms: Community [facility] Discharge Orders: Discharge Order (Routine); Ordered 06/10/19 Ordered By: Rosendo Hercules Admission Data Admit Date/Time: 06/08/19 16:12 Attending Provider: Debra Blair Admit Provider: Cesar Hampton Primary Care Provider: ELEUTERIO MCADAMS Service: Psychiatry Other Pending Studies at Discharge: No
== END 2019-06-10 13:07 | disposition home or self-care (01) | DRG 882 ==
LOC: EDSEX → ED 10:46 → 3S 16:12